=== PATIENT | male | born 1960 | race Caucasian/White ===

== ENCOUNTER 2016-10-31 18:29 | Emergency (ER) | payer OTHER, BC | END 2016-10-31 19:28 | disposition home or self-care (01) | LOC: ER 18:29 | DX: S02.2XXA Fracture of nasal bones, initial encounter for closed fracture (principal); S40.012A Contusion of left shoulder, initial encounter; S80.01XA Contusion of right knee, initial encounter; S20.219A Contusion of unspecified front wall of thorax, initial encounter; V49.9XXA Car occupant (driver) (passenger) injured in unspecified traffic accident, initial encounter | CPT/HCPCS: 70160; 71010; 73030-LT; 73560-RT; 99284 ==